=== PATIENT | male | born 1985 | race African-American/Black ===

== ENCOUNTER 2017-05-20 14:54 | Emergency (ER) | payer SELFPAY ==
[~2017-05-20 14:54] MED LIST: ALPRAZOLAM PO; FLEXERIL10 MG PO; NAPROSYN500 MG PO
== END 2017-05-20 15:50 | disposition home or self-care (01) ==
LOC: CFTX 14:54 → CED 14:54 → CFTX 15:35
DX: L30.9 Dermatitis, unspecified (principal); F43.10 Post-traumatic stress disorder, unspecified; J45.909 Unspecified asthma, uncomplicated; F41.9 Anxiety disorder, unspecified; F17.210 Nicotine dependence, cigarettes, uncomplicated
CPT/HCPCS: 99282